=== PATIENT | male | born 1975 | race Caucasian/White ===

== ENCOUNTER 2021-10-24 12:36 | Emergency (ER) | payer OTHER ==
[~2021-10-24] VITALS: Ht 180.3 cm; Wt 104.5 kg
[2021-10-24] MEDS ORDERED: SUBO8MIS (12:44)
[2021-10-24 18:39] LABS: BASO # 0.1 10^3/uL (0.0-0.2); BASO % 0.5 % (0.0-1.0); EOS # 0.1 10^3/uL (0.0-0.5); EOS % 0.6 % (0.0-3.0); HEMATOCRIT 50.6 % (42.0-52.0); HEMOGLOBIN 17.4 g/dl (13.5-17.5); LYMPH # 1.8 10^3/uL (1.5-5.0); LYMPH % 12.5 % (24.0-44.0); MEAN CORPUSCULAR HEMOGLOBIN 35.1 pg (27.0-33.0); MEAN CORPUSCULAR HGB CONC 34.4 g/dl (32.0-36.5); MONO # 0.8 10^3/uL (0.0-0.8); MONO % 5.7 % (2.0-8.0); NEUTROPHILS # 11.3 10^3/uL (1.5-8.5); NEUTROPHILS % 79.7 % (36.0-66.0); PLATELET COUNT, AUTOMATED 209 10^3/uL (150-450); RED BLOOD COUNT 4.96 10^6/uL (4.30-6.10); WHITE BLOOD COUNT 14.1 10^3/uL (4.0-10.0)
[2021-10-24 19:12] LABS: ALBUMIN 4.1 GM/DL (3.2-5.2); ALT/SGPT 95 U/L (12-78); BILIRUBIN,TOTAL 0.9 MG/DL (0.2-1.0); BLOOD UREA NITROGEN 10 MG/DL (7-18); C REACTIVE PROTEIN QUANTITATIV 3.53 MG/DL (0.00-0.30); CALCIUM LEVEL 9.9 MG/DL (8.5-10.1); CARBON DIOXIDE LEVEL 29 MEQ/L (21-32); CHLORIDE LEVEL 98 MEQ/L (98-107); CREATININE FOR GFR 0.78 MG/DL (0.70-1.30); GLOMERULAR FILTRATION RATE > 60.0 (>60); GLUCOSE, FASTING 188 MG/DL (70-100); POTASSIUM SERUM 4.4 MEQ/L (3.5-5.1); SODIUM LEVEL 134 MEQ/L (136-145); TOTAL PROTEIN 8.8 GM/DL (6.4-8.2)
[2021-10-24 19:13] LABS: ERYTHROCYTE SEDIMENTATION RATE 2 mm/hr (0-15)
[2021-10-24] MEDS ORDERED: ISOVUE-370 76% 100ML VIAL As Ordered ONE (19:15)
[2021-10-24 19:39] LABS: LIPASE 79 U/L (73-393)
--- NOTE | 2021-10-24 19:51 | REPVR ---
PROCEDURE INFORMATION: Exam: CT Neck With Contrast Exam date and time: 10/24/2021 7:20 PM Age: 46 years old Clinical indication: Other: Dental abscess left, facial swelling TECHNIQUE: Imaging protocol: Computed tomography images of the neck with contrast. Radiation optimization: All CT scans at this facility use at least one of these dose optimization techniques: automated exposure control; mA and/or kV adjustment per patient size (includes targeted exams where dose is matched to clinical indication); or iterative reconstruction. Contrast material: ISOVUE 370; Contrast volume: 75 ml; Contrast route: INTRAVENOUS (IV); COMPARISON: No relevant prior studies available. FINDINGS: Paranasal sinuses: Inflammatory changes demonstrated in the frontal, maxillary, ethmoid and sphenoid sinuses. There is an air-fluid level on the right which may indicate acute sinusitis to be correlated clinically. Bilaterally occluded ostiomeatal complexes. Nasopharynx: Unremarkable. Dental: Inflammatory changes demonstrated in the left buccal region associated with periapical fluid involving a mole on the left. Findings may be of dental origin and indicate inflammatory changes related to a dental abscess. Oropharynx: Unremarkable. No significant tonsillar enlargement. Hypopharynx: Unremarkable. Larynx: Unremarkable. Normal epiglottis. Retropharyngeal space: Unremarkable. Submandibular/Parotid glands: Normal. Glands are normal in size. Thyroid: Normal. No enlarged or calcified nodules. Lymph nodes: There is bilateral submandibular lymphadenopathy measuring up to 1.4 cm on the left. Prominent bilateral jugulodigastric lymph nodes measure up to 1.2 cm on the left. Trachea: Visualized trachea is unremarkable. Lungs: Unremarkable as visualized. Bones/joints: Unremarkable. No acute fracture. Soft tissues: Unremarkable. No significant soft tissue swelling. IMPRESSION: 1. Inflammatory changes demonstrated in the frontal, maxillary, ethmoid and sphenoid sinuses. There is an air-fluid level on the right which may indicate acute sinusitis to be correlated clinically. 2. Inflammatory changes demonstrated in the left buccal region associated with periapical fluid involving a mole on the left. Findings may be of dental origin and indicate inflammatory changes related to a dental abscess. 3. There is bilateral submandibular lymphadenopathy measuring up to 1.4 cm on the left. Prominent bilateral jugulodigastric lymph nodes measure up to 1.2 cm on the left. 4. Bilaterally occluded ostiomeatal complexes. Electronically signed by: Deo Chase On 10/24/2021 19:50:23 PM
--- NOTE | 2021-10-24 19:57 | REPVR ---
PROCEDURE INFORMATION: Exam: US Abdomen, Limited; Right Upper Quadrant Exam date and time: 10/24/2021 7:48 PM Age: 46 years old Clinical indication: Abnormal findings; Abnormal lab test; Elevated liver enzymes TECHNIQUE: Imaging protocol: US abdomen. Real time ultrasound with image documentation. Limited exam focused on the right upper quadrant. COMPARISON: No relevant prior studies available. FINDINGS: Liver: The liver is diffusely echogenic relative to the right kidney, findings consistent with steatosis. Gallbladder: Normal. No gallstones. There is no gallbladder wall thickening. Common bile duct: The common bile duct measures 2 mm. No mass or choledocholithiasis. Pancreas: Pancreas partially obscured by overlying bowel gas. Right kidney: Right kidney measures 10.9 x 5.8 x 4 cm. IMPRESSION: 1. Hepatic steatosis. 2. No acute findings. Electronically signed by: Deo Chase On 10/24/2021 19:57:22 PM
[2021-10-24 20:05] LABS: HEMOGLOBIN A1c 9.1 %
[2021-10-24 20:07] LABS: HEPATITIS B SURFACE ANTIGEN NEGATIVE (NEGATIVE)
[2021-10-24 20:35] LABS: HEPATITIS C VIRUS ABY INDEX 0.1 INDEX (<0.8)
[2021-10-24 20:36] LABS: HEPATITIS B CORE ANTIBODY IGM NEGATIVE (NEGATIVE)
[2021-10-24] MEDS ORDERED: AMPICILLIN SOD/SULBACTAM SOD 3 GM in D5W MINI-BAG PLUS 100 ML IV ONE (20:40)
--- NOTE | 2021-10-24 21:04 | REPVR ---
PROCEDURE INFORMATION: Exam: XR Lumbosacral Spine Exam date and time: 10/24/2021 9:00 PM Age: 46 years old Clinical indication: Low back pain TECHNIQUE: Imaging protocol: XR of the lumbosacral spine. Views: 4 or 5 views. COMPARISON: No relevant prior studies available. FINDINGS: Bones/joints: Normal. No acute fracture. Normal alignment. Soft tissues: Unremarkable. Organs: Contrast demonstrated in the renal collecting systems and urinary bladder from prior contrast evaluation. IMPRESSION: No acute findings. Electronically signed by: Deo Chase On 10/24/2021 21:04:20 PM
[2021-10-24] MEDS ORDERED: AUGM875T28 PO (21:52)
[2021-10-24 21:54] VITALS: BP 139/87
== END 2021-10-24 22:11 | disposition home or self-care (01) ==
LOC: M ED 12:36
DX: K04.7 Periapical abscess without sinus (principal); K76.0 Fatty (change of) liver, not elsewhere classified; M54.50 Low back pain, unspecified; E11.9 Type 2 diabetes mellitus without complications; R94.5 Abnormal results of liver function studies; J01.90 Acute sinusitis, unspecified; F17.200 Nicotine dependence, unspecified, uncomplicated; F10.10 Alcohol abuse, uncomplicated
CPT/HCPCS: 70491; 72110; 76705; 80053; 83036; 83690; 85025; 85652; 86140; 86705; 86709; 86803; 87340; 96365; 99284; Q9967

== ENCOUNTER 2023-10-17 16:13 | Emergency (ER) | payer OTHER, SELFPAY ==
[~2023-10-17 16:13] MED LIST: AUGM875T28 PO; SUBO8MIS
[2023-10-17 19:11] VITALS: BP 149/75; TEMP 98.2; O2SAT 97
== END 2023-10-17 19:20 | disposition home or self-care (01) ==
LOC: M ED 16:13
DX: U07.1 COVID-19 (principal); E11.9 Type 2 diabetes mellitus without complications; Z79.899 Other long term (current) drug therapy